=== PATIENT | female | born 1975 | race Caucasian/White ===

== ENCOUNTER 2017-07-10 19:56 | Emergency (ER) | payer MEDICAID ==
[~2017-07-10] VITALS: Ht 147.3 cm; Wt 58.3 kg
[2017-07-10 20:16] VITALS: BP 130/78
--- NOTE | 2017-07-10 21:47 | NUR ---
Patient ambulated to [facility] to be evaluated as fast track by Dr. Caballero. RN evaluating patient.
--- NOTE | 2017-07-10 21:50 | NUR ---
41 Y/O F W/C/O PELVIC PAIN/ FREQUENT URINATION BUT DENIES ANY PAIN OR BURNING WITH URINATION. DENIESD ANY DISCHARGE. ER MADE AWARE.
--- NOTE | 2017-07-10 21:52 | NUR ---
ER AT BEDSIDE
[2017-07-10 22:12] VITALS: BP 125/80
--- NOTE | 2017-07-10 22:12 | NUR ---
Patient discharged with v/s stable. Written and verbal after care instructions given and explained. Patient alert, oriented and verbalized understanding of instructions. Ambulatory with steady gait. All questions addressed prior to discharge. ID band removed. Patient advised to follow up with PMD IN 2-3 DAYS. Rx of CIPRO given. Patient educated on indication of medication including possible reaction and side effects. Opportunity to ask questions provided and answered.
[2017-07-10 22:17] LABS: APPEARANCE,URINE SL CLOUDY (CLEAR); BILIRUBIN,URINE NEGATIVE (NEGATIVE); BLOOD, URINE 3+ (NEGATIVE); COLOR,URINE YELLOW (YELLOW); LEUKOCYTE ESTERASE ,URINE 3+ (NEGATIVE); NITRITE, URINE NEGATIVE (NEGATIVE); UGLUCOSE NEGATIVE (NEGATIVE)
[2017-07-10 22:42] LABS: RBC,URINE TOO NUMEROUS TO COUN /HPF (0-5); WBC,URINE TOO MANY TO COUNT /HPF (0-5)
--- NOTE | 2017-07-13 13:16 | NUR ---
LAB REPORTED E.COLI MDRO IN URINE---PT WAS GIVEN CIPRO RX AND INSTRUCTED TO RETURN WITH PMD 2-3 DAYS WAS SHOWN THE URINE CULTURE LIST AND CONFIRMS CIPRO TO BE THE APPROPRIATE TREATMENT---NO FURTHER ADVICE
== END 2017-07-10 22:12 | disposition home or self-care (01) ==
LOC: MED 19:56
DX: N39.0 Urinary tract infection, site not specified (principal); Z98.51 Tubal ligation status
CPT/HCPCS: 81001; 81025; 87086; 87186; 99284

== ENCOUNTER 2018-02-20 21:21 | Emergency (ER) | payer MEDICAID ==
[~2018-02-20] VITALS: Ht 157.5 cm; Wt 61.3 kg
[2018-02-20 21:31] VITALS: BP 145/97
[2018-02-20] MEDS ORDERED: ALUMINUM HYD/MAG/SIMETHICONE 30 ML, DICYCLOMINE HCL LIQUID 20 MG, LIDOCAINE VISCOUS 2% ... PO ONE ×3 (22:20)
[2018-02-20 22:38] LABS: BASOPHILS % (AUTO) 0.4 % (0.0-2.0); EOSINOPHILS % (AUTO) 0.7 % (0.0-4.0); HEMATOCRIT 39.3 % (36-48); HEMOGLOBIN 13.1 g/dL (12.0-16.0); LYMPHOCYTES # (AUTO) 1.9 K/uL (2.5-16.5); MEAN CORPUSCULAR HEMOGLOBIN 29 pg (27-31); MEAN CORPUSCULAR HGB CONC 33 g/dL (33-37); MEAN CORPUSCULAR VOLUME 86.6 fL (80-94); MONOCYTES # (AUTO) 0.6 K/uL (0.8-1.0); NEUTROPHILS # (AUTO) 4.5 K/uL (1.8-7.7); NEUTROPHILS % (AUTO) 63.9 % (42.2-75.2); PLATELET COUNT (AUTO) 248 K/uL (140-450); RED BLOOD CELL COUNT(AUTO) 4.55 MIL/uL (4.20-5.40); RED CELL DISTRIBUTION WIDTH 15.7 % (11.6-13.7)
[2018-02-20 22:47] LABS: ANION GAP 12.3 (8-16); CARBON DIOXIDE 26.5 mmol/L (21-32); CREATININE 0.6 mg/dL (0.6-1.3); POTASSIUM 3.8 mmol/L (3.5-5.1)
[2018-02-20 22:53] LABS: ALBUMIN 3.8 g/dL (3.4-5.0); TOTAL BILIRUBIN 0.3 mg/dL (0.0-1.0)
[2018-02-20] MEDS ORDERED: ONDANSETRON 4 MG ODT PO ONE (23:35)
[2018-02-20] MEDS ORDERED: KETOROLAC 60 MG/2 ML VIAL IM ONE (23:35)
[2018-02-21 00:06] VITALS: BP 110/68
== END 2018-02-21 00:06 | disposition home or self-care (01) ==
LOC: MED 21:21
DX: R11.2 Nausea with vomiting, unspecified (principal); R10.13 Epigastric pain; M79.1 Myalgia; M79.602 Pain in left arm; M79.605 Pain in left leg
CPT/HCPCS: 36415; 80053; 81002; 81025; 83690; 85025; 96372; 99284; J1885; S0119

== ENCOUNTER 2019-01-27 17:33 | Emergency (ER) | payer MEDICAID ==
[~2019-01-27] VITALS: Ht 149.9 cm; Wt 59.0 kg
[2019-01-27 17:35] VITALS: BP 146/98
[2019-01-27] MEDS ORDERED: KETOROLAC 60 MG/2 ML VIAL IM ONE (18:00)
--- NOTE | 2019-01-27 18:12 | NUR ---
c/o posterior neck pain which radiated to anterior chest wall during work today 1500hrs pressure/heavy sensation, denies sob or injury--- followed by a flutter as described by pt
[2019-01-27 18:27] LABS: BASOPHILS % (AUTO) 0.4 % (0.0-2.0); EOSINOPHILS # (AUTO) 0.1 K/uL (0-0.4); EOSINOPHILS % (AUTO) 2.3 % (0.0-4.0); HEMATOCRIT 37.8 % (36-48); HEMOGLOBIN 12.7 g/dL (12.0-16.0); LYMPHOCYTES # (AUTO) 1.4 K/uL (2.5-16.5); LYMPHOCYTES % (AUTO) 25.8 % (20.5-51.1); MEAN CORPUSCULAR HEMOGLOBIN 29 pg (27-31); MEAN CORPUSCULAR HGB CONC 34 g/dL (33-37); MEAN CORPUSCULAR VOLUME 85.9 fL (80-94); MONOCYTES # (AUTO) 0.4 K/uL (0.8-1.0); MONOCYTES % (AUTO) 6.6 % (1.7-9.3); NEUTROPHILS # (AUTO) 3.5 K/uL (1.8-7.7); NEUTROPHILS % (AUTO) 64.9 % (42.2-75.2); PLATELET COUNT (AUTO) 273 K/uL (140-450); RED BLOOD CELL COUNT(AUTO) 4.41 MIL/uL (4.20-5.40); RED CELL DISTRIBUTION WIDTH 15.5 % (11.6-13.7); WHITE BLOOD COUNT (AUTO) 5.4 K/uL (4.8-10.8)
[2019-01-27 18:46] LABS: ANION GAP 15.9 (8-16); CREATININE 0.7 mg/dL (0.6-1.3); POTASSIUM 3.9 mmol/L (3.5-5.1)
[2019-01-27 18:52] LABS: ALBUMIN 3.8 g/dL (3.4-5.0); TOTAL BILIRUBIN 0.2 mg/dL (0.0-1.0)
--- NOTE | 2019-01-27 19:09 | NUR ---
Patient discharged with v/s stable. Written and verbal after care instructions given and explained. Patient alert, oriented and verbalized understanding of instructions. [g ED.DCMODE] with [g ED.D/CMODE]. All questions addressed prior to discharge. ID band removed. Patient advised to follow up with PMD. Rx of [] given. Patient educated on indication of medication including possible reaction and side effects. Opportunity to ask questions provided and answered.
[2019-01-27 19:10] VITALS: BP 144/91
== END 2019-01-27 19:09 | disposition home or self-care (01) ==
LOC: MED 17:33
DX: R07.9 Chest pain, unspecified (principal); M54.2 Cervicalgia; R20.0 Anesthesia of skin
CPT/HCPCS: 36415; 71045; 80053; 81002; 81025; 84484; 85025; 96372; 99284; J1885; 93005

== ENCOUNTER 2019-09-06 17:30 | Emergency (ER) | payer MEDICAID ==
[~2019-09-06] VITALS: Ht 151.1 cm; Wt 61.9 kg
[2019-09-06 17:53] VITALS: BP 127/81
[2019-09-06 18:45] VITALS: BP 118/75
== END 2019-09-06 18:45 | disposition home or self-care (01) ==
LOC: MED 17:30
DX: B34.9 Viral infection, unspecified (principal); J02.9 Acute pharyngitis, unspecified
CPT/HCPCS: 96365; 96375; 99283; 99285